=== PATIENT | male | born 1950 | race Caucasian/White ===

== ENCOUNTER → 2018-05-12 10:49 | Outpatient (BNVA) | payer MEDICARE, SELFPAY | PROVIDERS: Visit Provider Surgery | DX: K40.30 Unilateral inguinal hernia, with obstruction, without gangrene, not specified as recurrent (principal); K40.91 Unilateral inguinal hernia, without obstruction or gangrene, recurrent | CPT/HCPCS: 99213 ==

== ENCOUNTER 2018-05-25 08:35 | Day surgery (SDC) | payer MEDICARE, SELFPAY ==
[2018-05-25] VITALS (10 sets, daily range): BP systolic 110–159; BP diastolic 63–83; PULSE 63–81; RESP 10–20; TEMP 35.8–36.5; O2SAT 96–98
--- NOTE | 2018-05-25 06:43 | W.PM.DSUDISC ---
Discharge Plan Disposition Patient Disposition: HOME Condition: Good Discharge Details Reason For Visit: Bilateral hernia repair Attending Provider: Rufina Fischer Primary Care Provider: Don Arguello Home Meds and New Rx's Prescriptions: Continue naproxen 375 MG tablet,delayed release (DR/EC) 375 mg PO BID PRN (Reason: Pain) Qty: 14 RF: 0 oxycodone-acetaminophen [Percocet] 5-325 mg Tablet 1 tab PO Q4H RF: 0 Discharge Instructions Instructions: Inguinal Hernia Repair (DC) Additional Instructions: Follow up: 2 weeks Please call if you develop: fevers >101.5 Nausea or Vomiting Redness and hot to the touch around the incision Thick discharge from the incision Worsening abdominal pain Medication: Ibuprofen 600 mg every 6 hours as needed Tylenol 1000 mg every 6 hours as needed for pain Miralax as needed for constipation Other: may use ice over the incision as needed for swelling, bruising and pain May shower starting tomorrow Do not soak the incision for 1 week 1. Because there will be medication in your system for the next 24 hours, you may feel a little sleepy. Your coordination will be affected. Therefore: a. Do not drive or operate dangerous equipment for 24 hours. b. Do not drink alcohol beverages for 24 hours (not even beer). c. Plan to go home and rest for the day. 2. Generally the only restriction on your activity is no lifting, pulling or pushing more then 20 lb for 4 weeks. You may feel fatigued for 2-4 weeks. 3 After you arrive home you may have a light meal and return to a normal diet as you can tolerate it without feeling sick to your stomach. 4. After surgery, you may feel pain or discomfort. Take the medications as prescribed. 5. If there are any questions regarding the findings of your procedure, please feel free to contact your doctor. 6. If you are unable to contact your doctor with a problem, contact the hospital at [phone]. 7. Continue all your regular medications unless directed otherwise. 8. You are being prescribed a Narcotic pain medication. Narcotic pain medications have an addiction potential for everyone. It is important that you take the medication as prescribed There is a limit on how many tablets we can prescribed, this has been decided by the state Please keep the medications in a secure place and do not let anyone know you have them at home If you have medication left over please discard them by crushing them in a little water and mixing in used coffee grounds or cat litter and putting in the trash. I understand the above instructions and have no questions. Signature of Patient or Responsible Adult Escort Date/Time Name of Responsible Adult Escort Signature of Nurse Date/Time Stand Alone Forms: Anes.Nerve Block Instructions, Rajinder Hare (DSU) Referrals: Rufina Fischer MD [ [facility] STAFF PHYSICIAN] - (Follow up in 2 weeks please) Print Language: [place] Activity:: No lifting, pushing, pulling more then 20 lb x 4 weeks Diet:: As Tolerated Discharge Orders Discharge Orders: Discharge Order (Routine); Ordered 05/25/18 Ordered By: Rufina Fischer
[2018-05-25] MEDS: Lactated Ringers 1,000 ML 80 ML IV ×2 (09:10→13:11)
[2018-05-25] MEDS: Bupivacaine 0.25% Pres-Free 10 ML VIAL 40 ML (09:24)
[2018-05-25] MEDS: Normal Saline 10 ML VIAL IJ ×2 (09:40→09:51)
[2018-05-25] MEDS: Lidocaine 2% Pres-Free 5 ML VIAL 20 ML (11:04)
[2018-05-25] MEDS: fentaNYL 100 MCG/2 ML VIAL IVP ×2 (11:53→12:37)
[2018-05-25] MEDS: HYDROmorphone 2 MG/ML VIAL IVP ×3 (12:10→12:30)
[2018-05-25] MEDS: traMADol 50 MG TAB PO (14:15)
--- NOTE | 2018-05-25 16:13 | ROE_ITS ---
DATE OF PROCEDURE: May 25, 2018 PREOPERATIVE DIAGNOSIS: #1. Recurrent right inguinal hernia. #2. Left inguinal hernia. POSTOPERATIVE DIAGNOSIS: #1. Recurrent indirect hernia. #2. Left direct and indirect hernia. PROCEDURE: Bilateral inguinal hernia repairs with BARD plug and mesh. SURGEON: Rufina Fischer M.D. TAKE DOWN INSPECTOR: Rissa Jin PA-C ANESTHESIA: General anesthesia with LMA and lateral TAP blocks. ANESTHESIA PROVIDER: Ajit Chisholm CRNA, and Kg Guidry CRNA BLOOD LOSS: <10 cc SPECIMENS: None. COMPLICATIONS: No immediate complications. INDICATIONS: Mr. Mcgovern is a 67-year-old gentleman who had a right inguinal hernia repair emergently done by myself about a month ago. Unfortunately, it seemed to recur quite quickly after surgery. Wh en he was seen for his second postoperative visit he was also noted to have a left inguinal hernia. I recommended repair of both hernias. Because he had already had an open repair on the right, laparo scopic repair was not an option for him. The risks, benefits, and complications of open repair were reviewed with him and he wished to proceed. No guarantees were given or implied. FINDINGS: On the right side, I found that his direct hernia had not recurred. The mesh was in good position, but the indirect hernia had recurred and the mesh was just not quite tight enough around th e cord structures. On the left side, there was both a direct and an indirect hernia. PROCEDURE: After informed consent was obtained, the patient was taken to the Operating Room and plac ed in a supine position. Monitors were applied and a time-out was done. The patient's name, date of , procedure type, allergies to medications, DVT prophylaxis, and antibiotic given were all revi ewed. The patient was then placed under general anesthesia and an LMA was placed. His abdomen was t hen prepped and draped and anesthesia did a bilateral TAP block. Once that was done, the groin area was clipped and then prepped and draped in a sterile surgical fashion. A second time-out was done. The patient's name, date of , procedure site and type, allergies to medications, DVT prophylaxis , and antibiotic given were all reviewed again. The area was draped in a standard surgical fashion a nd then 2% lidocaine was injected just into the dermis along the right inguinal scar. The old scar was reopened and dissection was done with cautery down through the Marcela's fascia down to the external oblique fascia. The external oblique fascia was identified and opened sharply. Cord structures were identified and a [place] drain was placed around it. The indirect hernia was identi fied and the sac was noted. The sac was dissected away from the cord structures and amputated and th e stump was reduced. The floor of the hernia was identified, the old mesh was palpated and was in go od position. A large plug was then placed into the indirect area and indirect hernia opening and sec ured with #2-0 Prolene. A second piece of mesh was applied over the plug, attached to the conjoined tendon, and then medially and laterally to the ilioinguinal ligament and the shelving edge. The area was then irrigated. No bleeding was noted. Once the area was dried, the external oblique fascia wa s reapproximated using #2-0 Vicryl. The Marcela's fascia was reapproximated using #3-0 Vicryl. The d ermis was reapproximated with #4-0 Vicryl. Next, 2% lidocaine was injected into the dermis in the left inguinal area. An incision was made with a 15 blade and dissection was done through the subcutaneous tissue with cautery and Marcela's fascia down to the external oblique fascia. The external ring was identified and the external oblique fasci a was opened sharply with curved Metzenbaum scissors through the external ring. Cord structures were identified and a [place] drain was placed around them. A large cord lipoma was noted and resected. A small indirect hernia was identified as well as a small hernia sac which was reduced. The larger hernia was actually a direct one. Retroperitoneal fat was noted to be bulging through the floor of t he hernia. A large plug was again placed into the indirect hernia opening and secured with #2-0 Prol donna. Then a large flat piece of mesh was applied and secured to the conjoined tendon and then latera lly and medially to the shelving edge and ilioinguinal ligament using another #2-0 Prolene. The tail s of the mesh were placed around the cord structures and secured with #2-0 Prolene. The fascia was c losed with #3-0 Vicryl. The Marcela's fascia was reapproximated with #3-0 Vicryl and the dermis was c losed with #4-0 Vicryl. The skin was cleaned and dried and Skin Affix was applied over both incision s. The patient was woken up, extubated, and taken back to Recovery in stable condition. Sponge, instrument, and needle counts were correct at the end of the case x2.
== END 2018-05-25 15:12 | disposition home or self-care (01) ==
LOC: SUR 08:36
PROVIDERS: PCP General Practice; Visit Provider Surgery
PROC: (CPT 49505; principal; 2018-05-25 09:45)
DX: K40.91 Unilateral inguinal hernia, without obstruction or gangrene, recurrent (principal); K40.90 Unilateral inguinal hernia, without obstruction or gangrene, not specified as recurrent; F17.210 Nicotine dependence, cigarettes, uncomplicated
CPT/HCPCS: 49505; C1781; J0131; J0690; J1100; J1885; J2250; J2405; J3010

== ENCOUNTER → 2018-06-06 13:27 | Outpatient (BNVA) | payer MEDICARE, SELFPAY | PROVIDERS: PCP General Practice; Referring Provider General Practice; Visit Provider Surgery | DX: Z48.89 Encounter for other specified surgical aftercare (principal); K40.20 Bilateral inguinal hernia, without obstruction or gangrene, not specified as recurrent ==